=== PATIENT | male | born 1970 | race Caucasian/White ===

== ENCOUNTER → 2016-10-02 | Outpatient (REF) ==
--- NOTE | 2016-10-02 15:12 | REP ---
PARTIAL LUMBAR SPINE, THREE VIEWS: HISTORY: Degenerative disc disease. COMPARISON: 03/03/2014 There is no acute fracture or subluxation. The intervertebral discs are decreased in height consistent with disc degeneration. Osteophytes are present throughout the lumbar spine. There is sclerosis of the L4-5 and L5-S1 facets. IMPRESSION: Degenerative change as described above. Signed by Earl Priest MD 10/02/2016 03:13 P
--- NOTE | 2016-10-03 03:20 | REP ---
Clinical: Pain. Technique: Internal rotation, external rotation, and Y view. Findings: No acute fracture or dislocation. Moderate arthritic degenerative changes including cortical irregularities and subtle spurring at the acromioclavicular joint and humeral head as well as blunting and subtle heterogeneity involving the glenoid rim with inferior spurring. Impression: Moderate arthritic degenerative changes. Signed by Agustin Metcalf MD 10/03/2016 03:12 A
== END ==
LOC: M SMT 12:57
PROVIDERS: ATTEND Internal Medicine
DX: M54.5 Low back pain (principal)